=== PATIENT | male | born 1950 | race Caucasian/White ===

== ENCOUNTER 2016-08-24 18:51 | Emergency (ER) | payer BC ==
--- NOTE | 2016-08-25 03:14 | NUR ---
08/24/16 193 RECEIVED CALL FROM [facility] COORDINATOR RONNY STATING THAT PT SHOWS POTENTIAL FOR EYE AND TISSUE DONATION. 08/24/162102 [place] [place] [facility] COORDINATOR RONNY CALLS AGAIN STATING THAT HE HAS NOTIFIED MORTUARY. 08/25/16 0200 RECEIVED CALL FROM [facility] COORDINATOR RONNY STATING THAT FAMILY HAS CONSENTED FOR DONATION. TRANSPORT ARRANGEMENTS PENDING. BODY REMAINS IN MORE.
--- NOTE | 2016-09-04 07:12 | ER ---
ADMIT: 08/24/2016 RM/LOC: ER [facility] MR#: [id number] [id number] [place], [place] [id number] BERRY, GRIFFIN [address] [place] [address] Emergency Room Report SEX: M AGE: 66 : 1950 DATE: 08/24/2016 CHIEF COMPLAINT: Code blue arrest. HISTORY OF PRESENT ILLNESS: The patient is a 66-year-old male, who is brought in by EMS for a witnessed arrest. The history from EMS crew is that the patient was at the field house when he slumped down and became unresponsive. Apparently, the patient had not had any complaints prior to slumping down and had been with his son just prior to that and was acting normal. Family was able to provide me some history when they do arrive and state that the patient had not been having any abnormal complaints today but is not the one to typically complain much. They state that he had been in to see his regular doctor within the past couple of weeks and noted that they said that it sounded like the patient had a heart murmur on his exam and was set up to get an echocardiogram but was not having any chest pain or difficulty breathing. Apparently, he has no cardiac history whatsoever, but does have a diagnosis of hypertension. Apparently, the patient collapsed. They checked for pulse, did not feel one and started CPR very quickly by a bystander. When EMS arrived, they noted that patient was in PEA and they obtained IV access and gave the patient 1 mg of epinephrine and they reported they did get a pulse back. They began transporting the patient, got him intubated en route and were giving him respiratory support with bagging the patient. Apparently, he lost his pulse again shortly before arrival to the ER and gave him an additional dose of epinephrine as he was in a PEA rhythm and were able to get his pulse back. They state they additionally gave the patient an amp of bicarb. REVIEW OF SYSTEMS: Unable to obtain. PAST MEDICAL HISTORY: Significant for hypertension as reported by family. MEDICATIONS: Unknown. ALLERGIES: DID NOT SEE ANY IN OUR SYSTEM. SOCIAL HISTORY: He lives with his . No smoking history as reported by family. PHYSICAL EXAMINATION: GENERAL: The patient is intubated on arrival and is being bagged and having chest compressions done by the MILY device. HEENT: Head shows no signs of trauma. He does have an ET tube in place. Pupils are 3 mm bilaterally and not reactive. The patient will not track with his eyes. Trachea is midline. He does have some reddish purplish discoloration to his upper chest, neck, and face. He does have bilateral breath sounds while being bagged. ABDOMEN: Soft. EXTREMITIES: I did not feel a pulse in any of the patient's extremities when the MILY device is not giving compressions. I do not see any signs of trauma ADMIT: 08/24/2016 RM/LOC: [facility] MR#: [id number] [address] [place] [id number] GRIFFIN SMART [address] [place] [address] Emergency Room Report SEX: M AGE: 66 : 1950 on the patient's torso or extremities, and he does have a pale coloration to his 4 extremities. EMERGENCY DEPARTMENT COURSE: The patient arrives. He is undergoing CPR, getting bagged, and having compressions by MILY device. We got the patient hooked up on monitor and we paused the MILY device and saw the patient was in PEA. At that point, we continued compressions, gave him 1 mg of epinephrine IV. This was allowed to circulate, and we did another pulse check and noticed he was still in a PEA rhythm and an additional dose of epinephrine was given and an amp of bicarb. At this point, I went and talked to the family and they were able to provide me some history. I informed them that he had had 2 epinephrine's prior to arrival and we have given him 2 more in our Emergency Department, we are not getting any improvement in his return of spontaneous circulation. At that point, I went back to the patient's bedside and we did another pulse check and he was still in PEA. I gave him a third dose of epinephrine 1 mg IV at that time. We did allow that to circulate and performed another pulse check and he was still in PEA as we could not auscultate a pulse and he had very low amplitude QRS seen on his monitor. At this point, he had gotten a total of five 1 mg IV doses of epinephrine and two 1 amp of bicarb's. We had no return of spontaneous circulation and code was called at 1901 hours. DIAGNOSIS: Unsuccessful cardiopulmonary resuscitation. Johan Anderson MD/ adian JOB #: [id number] CC: Johan Anderson MD, Attending Physician UNKNOWN, Family Physician
== END 2016-08-24 21:08 | disposition expired ==
LOC: EDBD 18:51 → ER 18:51
PROC: 5A12012 Performance of Cardiac Output, Single, Manual (ICD-10-PCS; principal; 2016-08-24)
DX: I46.9 Cardiac arrest, cause unspecified (principal); I10 Essential (primary) hypertension; Z87.442 Personal history of urinary calculi; Z79.899 Other long term (current) drug therapy